=== PATIENT | male | born 1970 | race Caucasian/White ===

== ENCOUNTER 2017-04-12 12:40 | Emergency (ER) | payer OTHER ==
[~2017-04-12] VITALS: Ht 185.4 cm; Wt 83.9 kg
[2017-04-12 13:02] VITALS: BP 142/89
== END 2017-04-12 13:41 | disposition home or self-care (01) ==
LOC: ER 12:42
DX: M79.2 Neuralgia and neuritis, unspecified (principal)
CPT/HCPCS: 99283; A4606; Z7610